=== PATIENT | male | born 1990 | race Caucasian/White ===

== ENCOUNTER 2017-06-12 17:01 | Emergency (ER) | payer OTHER | END 2017-06-12 17:44 | disposition home or self-care (01) | LOC: NAV ERS 17:01 | DX: Z77.21 Contact with and (suspected) exposure to potentially hazardous body fluids (principal) | CPT/HCPCS: 99001; 99283 ==

== ENCOUNTER 2017-06-30 11:51 | Outpatient (CLI) | payer OTHER ==
[2017-06-30 18:11] LABS: HBSAB Concentration 0.06 mIU/mL; HIV (1/2) Antibody/Antigen Non-Reactive (NonReactive); HIV 1/2 INDEX 0.08 S/CO (<1.00); Hep B Surf AB Non-Reactive (NonReactive); Hep C IgG Ab Non-Reactive (NonReactive); Hep C Index 0.23 S/CO (0-0.79)
== END 2017-06-30 11:52 | disposition home or self-care (01) ==
LOC: NAV LAB 11:51
DX: Z77.21 Contact with and (suspected) exposure to potentially hazardous body fluids (principal)
CPT/HCPCS: 86706; 86803; 87389